=== PATIENT | female | born 1990 | race Two or more races ===

== ENCOUNTER 2017-12-25 10:41 | Observation (INO) | payer MEDICAID | END 2017-12-25 12:00 | disposition home or self-care (01) | DRG 566 | LOC: LDRP 10:41 | PROVIDERS: ADMIT Specialist; ATTEND Specialist | DX: O24.419 Gestational diabetes mellitus in pregnancy, unspecified control (principal); Z3A.32 32 weeks gestation of pregnancy | CPT/HCPCS: 59025; 76818; 81002; 82962; G0378 ==

== ENCOUNTER 2018-01-02 11:02 | Observation (INO) | payer MEDICAID ==
[2018-01-02] MEDS ORDERED: ASPI-498 OR (12:33)
[2018-01-02] MEDS ORDERED: PREN-96 PO (12:33)
== END 2018-01-02 12:40 | disposition home or self-care (01) | DRG 566 ==
LOC: LDRP 11:02
PROVIDERS: ADMIT Obstetrics & Gynecology; ATTEND Obstetrics & Gynecology
DX: O24.419 Gestational diabetes mellitus in pregnancy, unspecified control (principal); O26.893 Other specified pregnancy related conditions, third trimester; R10.10 Upper abdominal pain, unspecified; Z3A.33 33 weeks gestation of pregnancy
CPT/HCPCS: 76818; 82962; G0378

== ENCOUNTER 2018-01-07 19:30 | Observation (INO) | payer MEDICAID ==
[~2018-01-07 19:30] MED LIST: ASPI-498 OR; PREN-96 PO
== END 2018-01-07 21:07 | disposition home or self-care (01) | DRG 566 ==
LOC: LDRP 19:30
PROVIDERS: ADMIT Specialist; ATTEND Specialist
DX: O24.419 Gestational diabetes mellitus in pregnancy, unspecified control (principal); Z3A.34 34 weeks gestation of pregnancy
CPT/HCPCS: 59025; 76818; 81002; 82948; 82962; G0378

== ENCOUNTER 2018-01-14 13:27 | Observation (INO) | payer MEDICAID ==
[2018-01-14] MEDS ORDERED: GLYB2.5T8 PO (14:54)
== END 2018-01-14 14:35 | disposition home or self-care (01) | DRG 566 ==
LOC: LDRP 13:27
PROVIDERS: ADMIT Specialist; ATTEND Specialist
DX: O26.893 Other specified pregnancy related conditions, third trimester (principal); Z3A.35 35 weeks gestation of pregnancy
CPT/HCPCS: 59025; 76818; 81002; G0378

== ENCOUNTER 2018-01-18 19:08 | Observation (INO) | payer MEDICAID ==
[~2018-01-18 19:08] MED LIST changes: +GLYB2.5T8 PO
== END 2018-01-18 19:55 | disposition home or self-care (01) | DRG 566 ==
LOC: LDRP 19:08
PROVIDERS: ADMIT Obstetrics & Gynecology; ATTEND Obstetrics & Gynecology
DX: O24.419 Gestational diabetes mellitus in pregnancy, unspecified control (principal); O62.9 Abnormality of forces of labor, unspecified; Z3A.35 35 weeks gestation of pregnancy
CPT/HCPCS: 59025; 81002; 82948; 82962; G0378

== ENCOUNTER 2018-01-21 15:10 | Observation (INO) | payer MEDICAID | END 2018-01-21 16:28 | disposition home or self-care (01) | DRG 566 | LOC: LDRP 15:10 | PROVIDERS: ADMIT Specialist; ATTEND Specialist | DX: O24.419 Gestational diabetes mellitus in pregnancy, unspecified control (principal); Z3A.36 36 weeks gestation of pregnancy | CPT/HCPCS: 59025; 76818; 81002; 82962; G0378 ==

== ENCOUNTER 2018-01-23 15:28 | Observation (INO) | payer MEDICAID | END 2018-01-23 16:35 | disposition home or self-care (01) | DRG 566 | LOC: LDRP 15:28 | PROVIDERS: ADMIT Obstetrics & Gynecology; ATTEND Obstetrics & Gynecology | DX: O24.419 Gestational diabetes mellitus in pregnancy, unspecified control (principal); O99.340 Other mental disorders complicating pregnancy, unspecified trimester; F79 Unspecified intellectual disabilities; Z3A.36 36 weeks gestation of pregnancy | CPT/HCPCS: 59025; 76818; 81002; 82948; 82962; G0378 ==

== ENCOUNTER 2018-01-28 10:57 | Observation (INO) | payer MEDICAID | END 2018-01-28 12:20 | disposition home or self-care (01) | DRG 566 | LOC: LDRP 10:57 | PROVIDERS: ADMIT Obstetrics & Gynecology; ATTEND Obstetrics & Gynecology | DX: O24.419 Gestational diabetes mellitus in pregnancy, unspecified control (principal); O26.893 Other specified pregnancy related conditions, third trimester; R10.10 Upper abdominal pain, unspecified; O62.9 Abnormality of forces of labor, unspecified; Z3A.37 37 weeks gestation of pregnancy | CPT/HCPCS: 59025; 76818; 81002; 82948; 82962; G0378 ==

== ENCOUNTER 2018-02-03 11:01 | Observation (INO) | payer MEDICAID | END 2018-02-03 12:45 | disposition home or self-care (01) | DRG 566 | LOC: LDRP 11:01 | PROVIDERS: ADMIT Obstetrics & Gynecology; ATTEND Obstetrics & Gynecology | DX: O24.419 Gestational diabetes mellitus in pregnancy, unspecified control (principal); Z3A.38 38 weeks gestation of pregnancy | CPT/HCPCS: 59025; 76818; 81002; 82948; 82962; G0378 ==

== ENCOUNTER 2018-02-06 15:02 | Observation (INO) | payer MEDICAID | END 2018-02-06 16:45 | disposition home or self-care (01) | DRG 566 | LOC: LDRP 15:37 | PROVIDERS: ADMIT Obstetrics & Gynecology; ATTEND Obstetrics & Gynecology | DX: O24.419 Gestational diabetes mellitus in pregnancy, unspecified control (principal); Z3A.38 38 weeks gestation of pregnancy | CPT/HCPCS: 59025; 76818; 81002; 82948; 82962; G0378 ==

== ENCOUNTER 2018-02-10 16:44 | Observation (INO) | payer MEDICAID | END 2018-02-10 21:55 | disposition home or self-care (01) | DRG 566 | LOC: LDRP 20:10 | PROVIDERS: ADMIT Obstetrics & Gynecology; ATTEND Obstetrics & Gynecology | DX: O24.419 Gestational diabetes mellitus in pregnancy, unspecified control (principal); O26.893 Other specified pregnancy related conditions, third trimester; R10.10 Upper abdominal pain, unspecified; Z3A.39 39 weeks gestation of pregnancy | CPT/HCPCS: 59025; 76818; 81002; 82962; G0378 ==

== ENCOUNTER 2021-10-18 08:25 | Observation (INO) | payer MEDICAID ==
[~2021-10-18] VITALS: Ht 162.6 cm; Wt 126.1 kg
[2021-10-18] MEDS ORDERED: METF-370 PO (10:23)
[2021-10-18] MEDS ORDERED: INSU1INJ19 SC (10:24)
== END 2021-10-18 10:41 | disposition home or self-care (01) ==
LOC: LDRP 09:12 → UNDOADMOB 09:49 → LDRP 09:49 → UNDODISOB 10:41
PROVIDERS: ADMIT Obstetrics & Gynecology; ATTEND Obstetrics & Gynecology
DX: O24.419 Gestational diabetes mellitus in pregnancy, unspecified control (principal); Z3A.30 30 weeks gestation of pregnancy
CPT/HCPCS: 59025; 76818; 81002; 82948; 82962; G0378

== ENCOUNTER 2021-10-23 08:19 | Observation (INO) | payer MEDICAID ==
[~2021-10-23] VITALS: Ht 160 cm; Wt 126.1 kg
[~2021-10-23 08:19] MED LIST changes: -ASPI-498 OR; +INSU1INJ19 SC; +METF-370 PO
== END 2021-10-23 10:12 | disposition home or self-care (01) ==
LOC: UNDOADMOB 08:20 → LDRP 08:20 → UNDODISOB 10:12
PROVIDERS: ADMIT Obstetrics & Gynecology; ATTEND Obstetrics & Gynecology
DX: O24.419 Gestational diabetes mellitus in pregnancy, unspecified control (principal); Z3A.30 30 weeks gestation of pregnancy
CPT/HCPCS: 59025; 76818; 81002; 82948; 94760; G0378

== ENCOUNTER 2021-10-26 10:38 | Observation (INO) | payer MEDICAID | END 2021-10-29 10:43 | disposition home or self-care (01) | LOC: LDRP 10-29 09:15 → UNDOADMOB 10-29 09:15 → LDRP 10-29 09:54 → UNDODISOB 10-29 10:43 | PROVIDERS: ADMIT Obstetrics & Gynecology Obstetrics; ATTEND Obstetrics & Gynecology Obstetrics | DX: O24.419 Gestational diabetes mellitus in pregnancy, unspecified control (principal); Z3A.31 31 weeks gestation of pregnancy | CPT/HCPCS: 59025; 76818; 81002; 82948; 82962; 94760; G0378 ==

== ENCOUNTER 2021-11-01 09:14 | Observation (INO) | payer MEDICAID | END 2021-11-01 11:10 | disposition home or self-care (01) | LOC: LDRP 09:14 → UNDOADMOB 09:14 → LDRP 09:42 | PROVIDERS: ADMIT Obstetrics & Gynecology; ATTEND Obstetrics & Gynecology | DX: O24.419 Gestational diabetes mellitus in pregnancy, unspecified control (principal); Z3A.32 32 weeks gestation of pregnancy; Z91.040 Latex allergy status | CPT/HCPCS: 59025; 76818; 81002; 82948; 82962; 94760; G0378 ==

== ENCOUNTER 2021-11-05 07:35 | Observation (INO) | payer MEDICAID | END 2021-11-05 13:00 | disposition home or self-care (01) | LOC: UNDOADMOB 10:38 → LDRP 10:38 | PROVIDERS: ADMIT Obstetrics & Gynecology Obstetrics; ATTEND Obstetrics & Gynecology Obstetrics | DX: O24.419 Gestational diabetes mellitus in pregnancy, unspecified control (principal); Z3A.32 32 weeks gestation of pregnancy | CPT/HCPCS: 59025; 76818; 81002; 82948; 82962; G0378 ==

== ENCOUNTER 2021-11-07 13:52 | Observation (INO) | payer MEDICAID | END 2021-11-12 11:20 | disposition home or self-care (01) | LOC: LDRP 11-12 10:00 | PROVIDERS: ADMIT Obstetrics & Gynecology Obstetrics; ATTEND Obstetrics & Gynecology Obstetrics | DX: O24.419 Gestational diabetes mellitus in pregnancy, unspecified control (principal); Z3A.33 33 weeks gestation of pregnancy | CPT/HCPCS: 59025; 76818; 81002; 82962; G0378 ==

== ENCOUNTER 2021-11-08 16:38 | Observation (INO) | payer MEDICAID | END 2021-11-08 19:18 | disposition home or self-care (01) | LOC: LDRP 16:38 | PROVIDERS: ADMIT Obstetrics & Gynecology; ATTEND Obstetrics & Gynecology | DX: O24.419 Gestational diabetes mellitus in pregnancy, unspecified control (principal); Z3A.33 33 weeks gestation of pregnancy | CPT/HCPCS: 59025; 81002; 82962; G0378 ==

== ENCOUNTER 2021-11-15 10:48 | Observation (INO) | payer MEDICAID | END 2021-11-15 12:40 | disposition home or self-care (01) | LOC: UNDOADMOB 11:11 → LDRP 11:11 | PROVIDERS: ADMIT Obstetrics & Gynecology; ATTEND Obstetrics & Gynecology | DX: O24.419 Gestational diabetes mellitus in pregnancy, unspecified control (principal); Z3A.34 34 weeks gestation of pregnancy | CPT/HCPCS: 59025; 76818; 81002; 82948; 82962; 94760; G0378 ==

== ENCOUNTER 2021-11-19 07:41 | Observation (INO) | payer MEDICAID | END 2021-11-20 14:55 | disposition home or self-care (01) | LOC: LDRP 11-20 13:18 → UNDOADMOB 11-20 13:18 → LDRP 11-20 13:24 → UNDODISOB 11-20 14:55 | PROVIDERS: ADMIT Obstetrics & Gynecology; ATTEND Obstetrics & Gynecology | DX: O24.419 Gestational diabetes mellitus in pregnancy, unspecified control (principal); Z3A.34 34 weeks gestation of pregnancy | CPT/HCPCS: 59025; 76818; 81002; 82948; 82962; 94760; G0378 ==

== ENCOUNTER 2021-11-23 09:50 | Observation (INO) | payer MEDICAID | END 2021-11-23 12:11 | disposition home or self-care (01) | LOC: LDRP 10:04 → UNDOADMOB 10:04 → LDRP 11:14 | PROVIDERS: ADMIT Obstetrics & Gynecology; ATTEND Obstetrics & Gynecology | DX: O24.419 Gestational diabetes mellitus in pregnancy, unspecified control (principal); Z3A.35 35 weeks gestation of pregnancy | CPT/HCPCS: 59025; 76818; 81002; 82948; 82962; 94760; G0378 ==

== ENCOUNTER 2021-11-26 08:44 | Observation (INO) | payer MEDICAID | END 2021-11-26 11:52 | disposition home or self-care (01) | LOC: LDRP 10:18 → UNDOADMOB 10:18 → LDRP 10:34 → UNDODISOB 11:52 | PROVIDERS: ADMIT Obstetrics & Gynecology; ATTEND Obstetrics & Gynecology | DX: O24.419 Gestational diabetes mellitus in pregnancy, unspecified control (principal); Z3A.35 35 weeks gestation of pregnancy | CPT/HCPCS: 59025; 76818; 81002; 82948; 82962; 94760; G0378 ==

== ENCOUNTER 2021-11-28 07:37 | Observation (INO) | payer MEDICAID | END 2021-11-29 12:57 | disposition home or self-care (01) | LOC: UNDOADMOB 11-29 11:09 → LDRP 11-29 11:09 → UNDODISOB 11-29 12:57 | PROVIDERS: ADMIT Obstetrics & Gynecology; ATTEND Obstetrics & Gynecology | DX: O24.415 Gestational diabetes mellitus in pregnancy, controlled by oral hypoglycemic drugs (principal); Z79.84 Long term (current) use of oral hypoglycemic drugs; Z3A.36 36 weeks gestation of pregnancy | CPT/HCPCS: 59025; 76818; 81002; 82948; 94760; G0378 ==

== ENCOUNTER 2021-12-03 07:16 | Observation (INO) | payer MEDICAID | END 2021-12-03 12:32 | disposition home or self-care (01) | LOC: LDRP 09:45 → UNDOADMOB 09:45 → LDRP 11:12 → UNDODISOB 12:32 | PROVIDERS: ADMIT Obstetrics & Gynecology; ATTEND Obstetrics & Gynecology | DX: O24.414 Gestational diabetes mellitus in pregnancy, insulin controlled (principal); O24.415 Gestational diabetes mellitus in pregnancy, controlled by oral hypoglycemic drugs; Z79.4 Long term (current) use of insulin; Z79.84 Long term (current) use of oral hypoglycemic drugs; Z3A.36 36 weeks gestation of pregnancy | CPT/HCPCS: 59025; 76818; 81002; 82948; 82962; G0378 ==

== ENCOUNTER 2021-12-04 10:55 | Observation (INO) | payer MEDICAID | END 2021-12-04 12:10 | disposition home or self-care (01) | LOC: UNDOADMOB 10:55 → LDRP 10:55 → UNDODISOB 12:10 | PROVIDERS: ADMIT Obstetrics & Gynecology; ATTEND Obstetrics & Gynecology | DX: O24.419 Gestational diabetes mellitus in pregnancy, unspecified control (principal); O26.893 Other specified pregnancy related conditions, third trimester; R51.9 Headache, unspecified; Z3A.36 36 weeks gestation of pregnancy | CPT/HCPCS: 59025; 81002; 82962; 94760; G0378 ==

== ENCOUNTER → 2021-12-05 | Outpatient (CLI) | payer MEDICAID ==
[2021-12-05 14:51] LABS: Basophils # (auto) 0 10 ^3/uL (0-0.2); Basophils % (auto) 0.2 % (0.0-2.0); Eosinophils # (auto) 0.1 10 ^3/uL (0-0.8); Lymphocytes # (auto) 0.4 10 ^3/uL (0.4-5.4); Lymphocytes % (auto) 6.1 % (10.0-50.0); Mean Corpuscular Hemoglobin 26.2 pg (28.0-32.0); Monocytes # (auto) 0.2 10 ^3/uL (0-1.3); Neutrophils # (auto) 5.7 10 ^3/uL (1.6-8.6); White Blood Cell 6.5 10^3/uL (4.4-10.8)
[2021-12-05 14:53] LABS: Eosinophils % (auto) 1.6 % (0.0-7.0); Hematocrit 37.6 % (36.0-46.0); Hemoglobin 12.2 g/dL (12.2-16.2); Mean Corpuscular Hgb Conc. 32.5 g/dL (32.0-36.0); Mean Corpuscular Volume 80.6 fL (80.0-100.0); Monocytes % (auto) 3.5 % (0.0-12.0); Neutrophils % (auto) 88.6 % (37.0-80.0); Red Blood Cells 4.66 10^6/uL (4.0-5.20)
[2021-12-06 08:06] LABS: RPR Non Reactive (Non Reactive)
== END | disposition home or self-care (01) ==
LOC: LAB 10:41
PROVIDERS: ATTEND Obstetrics & Gynecology
DX: Z34.80 Encounter for supervision of other normal pregnancy, unspecified trimester (principal); Z3A.00 Weeks of gestation of pregnancy not specified
CPT/HCPCS: 36415; 82962; 84112; 85025; 86592

== ENCOUNTER 2021-12-06 08:58 | Observation (INO) | payer MEDICAID | END 2021-12-06 13:13 | disposition home or self-care (01) | LOC: LDRP 11:05 → UNDOADMOB 11:05 → LDRP 11:13 → UNDODISOB 13:13 | PROVIDERS: ADMIT Obstetrics & Gynecology; ATTEND Obstetrics & Gynecology | DX: O98.513 Other viral diseases complicating pregnancy, third trimester (principal); U07.1 COVID-19; O24.419 Gestational diabetes mellitus in pregnancy, unspecified control; Z3A.37 37 weeks gestation of pregnancy | CPT/HCPCS: 59025; 76818; 81002; 82948; 94760; G0378 ==

== ENCOUNTER 2021-12-10 11:04 | Observation (INO) | payer MEDICAID | END 2021-12-10 13:20 | disposition home or self-care (01) | LOC: LDRP 11:04 | PROVIDERS: ADMIT Obstetrics & Gynecology Obstetrics; ATTEND Obstetrics & Gynecology Obstetrics | DX: O24.419 Gestational diabetes mellitus in pregnancy, unspecified control (principal); Z3A.37 37 weeks gestation of pregnancy | CPT/HCPCS: 59025; 76818; 81002; 82948; 82962; G0378 ==

== ENCOUNTER 2021-12-14 11:07 | Inpatient (IN) | payer MEDICAID ==
[~2021-12-14] VITALS: Ht 30.5 cm; Wt 0.5 kg
[2021-12-14] MEDS ORDERED: DERMOPLAST 60ML BOTTLE TOP PRN (13:00)
[2021-12-14] MEDS ORDERED: PHISODERM TOP SOLN 240ML BTL TOP PRN (13:00)
[2021-12-14] MEDS ORDERED: PROMETHAZINE HCL 25 MG/ML 1ML IV PRN (13:00)
[2021-12-14] MEDS ORDERED: BUTORPHANOL TARTRATE 2 MG/1 ML VIAL IV PRN ×2 (13:00)
[2021-12-14] MEDS ORDERED: LACT. RINGERS/OXYTOCIN 20UNITS 500 ML IV ONE ×2 (13:00→13:30)
[2021-12-14] MEDS ORDERED: WITCH HAZEL-GLYCERIN PAD TOP PRN (13:00)
[2021-12-14] MEDS ORDERED: PROMETHAZINE HCL 25 MG/ML 1ML IM PRN (13:00)
[2021-12-14] MEDS ORDERED: LIDOCAINE 2%HCL (LOCAL ANESTH.) INJ 10ml MDV IJ PRN (13:00)
[2021-12-14 14:13] LABS: Basophils # (auto) 0 10 ^3/uL (0-0.2); Basophils % (auto) 0.2 % (0.0-2.0); Eosinophils # (auto) 0 10 ^3/uL (0-0.8); Eosinophils % (auto) 0.3 % (0.0-7.0); Hematocrit 40.4 % (36.0-46.0); Hemoglobin 13.2 g/dL (12.2-16.2); Lymphocytes # (auto) 1.1 10 ^3/uL (0.4-5.4); Lymphocytes % (auto) 21.2 % (10.0-50.0); Mean Corpuscular Hemoglobin 25.7 pg (28.0-32.0); Mean Corpuscular Hgb Conc. 32.8 g/dL (32.0-36.0); Mean Corpuscular Volume 78.3 fL (80.0-100.0); Monocytes # (auto) 0.2 10 ^3/uL (0-1.3); Monocytes % (auto) 4.1 % (0.0-12.0); Neutrophils # (auto) 3.7 10 ^3/uL (1.6-8.6); Neutrophils % (auto) 74.2 % (37.0-80.0); Nucleated Red Blood Cells % 0.1 %; Red Blood Cells 5.16 10^6/uL (4.0-5.20); Red Cell Distribution Width 16.2 % (11.8-14.3)
[2021-12-14 14:30] LABS: Albumin 2.7 g/dL (3.4-5.0); Calcium 8.4 mg/dL (8.5-10.1); Potassium 3.7 mmol/L (3.5-5.1)
[2021-12-14 14:33] LABS: BUN/Creatinine Ratio 11.3; Bilirubin, Total 0.5 mg/dL (0.2-1.0)
[2021-12-14 14:58] LABS: INR 0.89 (0.9-1.15)
[2021-12-14] MEDS ORDERED: ACCU-CHEK COMFORT CURVE STRIP VI SCH (15:00)
[2021-12-14] MEDS: LACTATED RINGER'S 1,000 ML IV SCH ×2 (15:03→15:04)
[2021-12-14 15:37] LABS: Amphetamine Screen, Urine NEGATIVE (NEGATIVE); Barbiturate Scree,Urine NEGATIVE (NEGATIVE); Benzodiazephine Screen, Urine NEGATIVE (NEGATIVE); Cannabinoid Screen, Urine NEGATIVE (NEGATIVE); Cocaine Screen, Urine NEGATIVE (NEGATIVE); Opiate Scree,Urine NEGATIVE (NEGATIVE); Phencyclidine Screen, Urine NEGATIVE (NEGATIVE)
[2021-12-14 15:39] LABS: Urine Bacteria NONE SEEN /hpf (None Seen); Urine Blood Negative /uL (Negative); Urine Specific Gravity 1.015 (1.001-1.035); Urine WBC 1 /hpf (0 - 5)
[2021-12-15] MEDS: miSOPROStol 50 MCG per PRE-CUT 1/2 TAB PO PRN ×4 (00:30→12:46)
[2021-12-15] MEDS: LACTATED RINGER'S 1,000 ML IV SCH ×2 (00:51→08:47)
[2021-12-15 07:06] LABS: RPR Non Reactive (Non Reactive)
[2021-12-16] MEDS ORDERED: miSOPROStol 50 MCG per PRE-CUT 1/2 TAB PO PRN ×2 (05:00→05:45)
== END 2021-12-16 16:21 | disposition home or self-care (01) | DRG 566 ==
LOC: LDRP 11:07 → OBSVTOIN 12:50 → LDRP 12:51
PROVIDERS: ADMIT Obstetrics & Gynecology; ATTEND Obstetrics & Gynecology
DX: O41.03X0 Oligohydramnios, third trimester, not applicable or unspecified (principal); U07.1 COVID-19; O24.419 Gestational diabetes mellitus in pregnancy, unspecified control; O98.513 Other viral diseases complicating pregnancy, third trimester; Z3A.37 37 weeks gestation of pregnancy
CPT/HCPCS: 36415; 59025; 76805; 76815; 76818; 80053; 80307; 81001; 81002; 82948; 82962; 85025; 85610; 85730; 86592; 86850; 86900; 86901; 94760; 96360; 96361; G0378

== ENCOUNTER 2021-12-17 08:23 | Observation (INO) | payer MEDICAID | END 2021-12-17 20:22 | disposition home or self-care (01) | LOC: LDRP 12:37 → UNDOADMOB 12:37 → LDRP 17:02 → UNDOADMOB 18:13 → LDRP 18:13 → UNDODISOB 20:22 | PROVIDERS: ADMIT Obstetrics & Gynecology Obstetrics; ATTEND Obstetrics & Gynecology Obstetrics | DX: O98.513 Other viral diseases complicating pregnancy, third trimester (principal); U07.1 COVID-19; O24.419 Gestational diabetes mellitus in pregnancy, unspecified control; Z3A.38 38 weeks gestation of pregnancy | CPT/HCPCS: 59025; 76818; 81002; 82948; 94760; G0378; U0003 ==

== ENCOUNTER 2021-12-22 09:50 | Inpatient (IN) | payer MEDICAID ==
[~2021-12-22] VITALS: Ht 162.6 cm; Wt 123.4 kg
[2021-12-22] MEDS ORDERED: PROMETHAZINE HCL 25 MG/ML 1ML IV PRN (12:15)
[2021-12-22] MEDS ORDERED: WITCH HAZEL-GLYCERIN PAD TOP PRN (12:15)
[2021-12-22] MEDS ORDERED: BUTORPHANOL TARTRATE 2 MG/1 ML VIAL IV PRN ×2 (12:15)
[2021-12-22] MEDS ORDERED: DERMOPLAST 60ML BOTTLE TOP PRN (12:15)
[2021-12-22] MEDS ORDERED: METHYLERGONOVINE MALEATE 0.2 MG/ML AMP IM ONE (12:15)
[2021-12-22] MEDS ORDERED: LIDOCAINE 2%HCL (LOCAL ANESTH.) INJ 10ml MDV IJ PRN (12:15)
[2021-12-22] MEDS ORDERED: PHISODERM TOP SOLN 240ML BTL TOP PRN (12:15)
[2021-12-22] MEDS ORDERED: LACT. RINGERS/OXYTOCIN 20UNITS 500 ML IV ONE ×2 (12:15→12:45)
[2021-12-22 13:26] LABS: Basophils # (auto) 0 10 ^3/uL (0-0.2); Basophils % (auto) 0.2 % (0.0-2.0); Eosinophils # (auto) 0.1 10 ^3/uL (0-0.8); Hemoglobin 12.3 g/dL (12.2-16.2); Monocytes # (auto) 0.3 10 ^3/uL (0-1.3)
[2021-12-22 13:28] LABS: Eosinophils % (auto) 0.9 % (0.0-7.0); Lymphocytes # (auto) 1.6 10 ^3/uL (0.4-5.4); Lymphocytes % (auto) 18.6 % (10.0-50.0); Mean Corpuscular Hemoglobin 26.2 pg (28.0-32.0); Mean Corpuscular Hgb Conc. 33.3 g/dL (32.0-36.0); Mean Corpuscular Volume 78.6 fL (80.0-100.0); Monocytes % (auto) 4.2 % (0.0-12.0); Neutrophils # (auto) 6.3 10 ^3/uL (1.6-8.6); Neutrophils % (auto) 76.1 % (37.0-80.0); Red Cell Distribution Width 16.5 % (11.8-14.3); White Blood Cell 8.3 10^3/uL (4.4-10.8)
[2021-12-22 13:39] LABS: Albumin 2.6 g/dL (3.4-5.0); Calcium 8.4 mg/dL (8.5-10.1); Potassium 3.7 mmol/L (3.5-5.1)
[2021-12-22] MEDS: miSOPROStol 50 MCG per PRE-CUT 1/2 TAB PO PRN ×3 (13:39→21:44)
[2021-12-22] MEDS: LACTATED RINGER'S 1,000 ML IV SCH ×2 (13:40→21:13)
[2021-12-22 13:42] LABS: Bilirubin, Total 0.3 mg/dL (0.2-1.0); Total Protein 6.6 g/dL (6.4-8.2)
[2021-12-22 13:45] LABS: INR 0.93 (0.9-1.15); Partial Thromboplastin Time 27.7 sec (24.6-33.4)
[2021-12-22] MEDS ORDERED: ACCU-CHEK COMFORT CURVE STRIP VI SCH (14:00)
[2021-12-22 14:08] LABS: Urine Bacteria NONE SEEN /hpf (None Seen); Urine Blood Negative /uL (Negative); Urine Specific Gravity 1.008 (1.001-1.035); Urine WBC <1 /hpf (0 - 5)
[2021-12-22 14:15] LABS: Alcohol, Urine < 3.0 mg/dL (0-10); Amphetamine Screen, Urine NEGATIVE (NEGATIVE); Barbiturate Scree,Urine NEGATIVE (NEGATIVE); Benzodiazephine Screen, Urine NEGATIVE (NEGATIVE); Cannabinoid Screen, Urine NEGATIVE (NEGATIVE); Cocaine Screen, Urine NEGATIVE (NEGATIVE); Opiate Scree,Urine NEGATIVE (NEGATIVE); Phencyclidine Screen, Urine NEGATIVE (NEGATIVE)
[2021-12-22] MEDS: ACCU-CHEK COMFORT CURVE STRIP VI SCH ×2 (17:09→21:49)
[2021-12-23] MEDS: ACCU-CHEK COMFORT CURVE STRIP VI SCH ×3 (00:04→05:49)
[2021-12-23] MEDS: miSOPROStol 50 MCG per PRE-CUT 1/2 TAB PO PRN ×2 (01:48→05:49)
[2021-12-23] MEDS: LACTATED RINGER'S 1,000 ML IV SCH ×2 (05:06→17:38)
[2021-12-23 06:06] LABS: RPR Non Reactive (Non Reactive)
[2021-12-23] MEDS ORDERED: DINOPROSTONE 10MG VAG SUPP PV ONE (08:15)
[2021-12-23] MEDS ORDERED: ACETAMINOPHEN 325 MG TAB PO PRN (21:45)
[2021-12-24] MEDS ORDERED: TERBUTALINE SULFATE 1 MG/ML 1ML VIAL SC PRN (08:00)
[2021-12-24] MEDS ORDERED: LACT. RINGERS/OXYTOCIN 20UNITS 1,000 ML IV SCH (08:00)
[2021-12-24] MEDS: LACTATED RINGER'S 1,000 ML IV SCH (10:53)
[2021-12-24] MEDS ORDERED: ROPIVACAINE HCL 200 ML EPI SCH (14:00)
[2021-12-24] MEDS ORDERED: NALOXONE HCL 0.4 MG/ML VIAL IV ONE (14:00)
[2021-12-24] MEDS ORDERED: fentaNYL CITRATE 100 MCG/2 ML VL IV ONE (14:00)
[2021-12-24] MEDS ORDERED: ePHEDrine SULFATE 50 MG/ML AMP IV ONE (14:00)
[2021-12-24] MEDS ORDERED: fentaNYL CITRATE 100 MCG/2 ML VL ONE (21:28)
[2021-12-24] MEDS ORDERED: ACETAMINOPHEN 325 MG TAB PO PRN (22:00)
[2021-12-24] MEDS ORDERED: ONDANSETRON ODT 4 MG TAB PO PRN (22:00)
[2021-12-24] MEDS ORDERED: DOCUSATE SOD 100 MG CAP PO PRN (22:00)
[2021-12-25 03:30] VITALS: BP 127/68
[2021-12-25] MEDS: IBUPROFEN 800 MG TAB PO SCH ×4 (03:49→18:00)
[2021-12-25 07:00] VITALS: BP 138/73
[2021-12-25 11:00] VITALS: BP 141/87
[2021-12-25 15:30] VITALS: BP 143/69
[2021-12-25 18:32] VITALS: BP 137/68
[2021-12-25 21:43] VITALS: BP 125/68
== END 2021-12-26 02:20 | disposition left against medical advice (07) | DRG 560 ==
LOC: LDRP 09:50 → UNDOADMOB 09:50 → OBSVTOIN 12:15 → LDRP 12:15
PROVIDERS: ADMIT Obstetrics & Gynecology; ATTEND Obstetrics & Gynecology
PROC: 3E0P7VZ Introduction of Hormone into Female Reproductive, Via Natural or Artificial Opening (ICD-10-PCS; 2021-12-22)
PROC: 3E0DXGC Introduction of Other Therapeutic Substance into Mouth and Pharynx, External Approach (ICD-10-PCS; 2021-12-22)
PROC: 10E0XZZ Delivery of Products of Conception, External Approach (ICD-10-PCS; principal; 2021-12-24)
DX: O24.429 Gestational diabetes mellitus in childbirth, unspecified control (principal); Z37.0 Single live birth; E66.01 Morbid (severe) obesity due to excess calories; O99.214 Obesity complicating childbirth; Z53.29 Procedure and treatment not carried out because of patient's decision for other reasons; O69.81X0 Labor and delivery complicated by cord around neck, without compression, not applicable or unspecified; Z20.822 Contact with and (suspected) exposure to COVID-19; Z3A.39 39 weeks gestation of pregnancy; Z86.16 Personal history of COVID-19; Z90.49 Acquired absence of other specified parts of digestive tract
CPT/HCPCS: 36415; 59025; 59409; 80053; 80307; 81001; 81002; 82948; 82962; 85025; 85610; 85730; 86592; 86850; 86900; 86901; 94760; 96360; 96361; 96365; 96366; 96374; G0378; J2590